=== PATIENT | male | born 1980 | race Caucasian/White ===

== ENCOUNTER 2022-08-12 20:41 | Emergency (ER) | payer OTHER ==
[2022-08-12 21:12] LABS: BASO% 0.4 % (0-3); EOS% 1.5 % (0-8); HEMATOCRIT 36.9 % (39.0-50.0); HEMOGLOBIN 13.2 g/dl (14.0-18.0); IMMATURE GRANULOCYTES 0.1 % (0.0-5.0); LYMPH% 20.2 % (15-41); MEAN CELL VOLUME 88.5 fL CALC (80.0-100.0); MEAN CORPUSCULAR HGB 31.7 pG CALC (26.0-32.0); MEAN CORPUSCULAR HGB CONC 35.8 g/dL CAL (32.0-36.0); MONO% 7.9 % (2-13); NEUT# 4.97 thou/uL (1.82-7.42); NEUT% 69.9 % (42-76); RED BLOOD COUNT 4.17 mill/uL (4.70-6.10); RED CELL DISTRI WIDTH 11.8 % (11.5-15.5)
[2022-08-12 21:23] LABS: ALBUMIN 4.1 g/dL (3.2-5.0); ALKALINE PHOSPHATASE 57 u/l (38-126); ANION GAP 13 (6-22 (CALC)); BILIRUBIN, TOTAL 0.3 mg/dL (0.0-1.4); BUN 15 mg/dL (9-20); BUN/CREATININE RATIO 12 (12-20 (CALC)); CARBON DIOXIDE 23 mmol/l (22-30); CHLORIDE 105 mmol/l (95-108); CREATININE 1.2 mg/dL (0.7-1.3); ETHYL ALCOHOL 0 mg/dl (0-30); GFR FOR AFR.AMER. > 60 ML/MIN (>=60 (CALC)); GFR OTHER RACES > 60 ML/MIN (>=60 (CALC)); POTASSIUM 3.4 mmol/l (3.5-5.1); SGOT/AST 26 u/l (17-59); SODIUM 137 mmol/l (137-146); TOTAL PROTEIN 6.6 g/dL (6.3-8.2)
[2022-08-12 23:24] LABS: URINE BILIRUBIN - DIPSTICK NEGATIVE (NEGATIVE); URINE BLOOD DIPSTICK NEGATIVE (NEGATIVE); URINE COLOR YELLOW; URINE GLUCOSE - DIPSTICK NEGATIVE (NEGATIVE); URINE KETONE NEGATIVE (NEGATIVE); URINE LEUK ESTERASE NEGATIVE (NEGATIVE); URINE PROTEIN - DIPSTICK NEGATIVE (NEG-TRACE); URINE SPECIFIC GRAVITY 1.015; URINE UROBILINOGEN - DIPSTICK 0.2 E.U./dL (0.2)
[2022-08-12 23:25] LABS: URINE NITRITE - DIPSTICK NEGATIVE (Negative)
[2022-08-13 00:12] VITALS: BP 11/62
== END 2022-08-13 01:01 | DRG 918 ==
LOC: ED 20:41
PROVIDERS: Family Medicine
DX: T40.2X1A Poisoning by other opioids, accidental (unintentional), initial encounter (principal); R40.4 Transient alteration of awareness; Y92.143 Cell of prison as the place of occurrence of the external cause

== ENCOUNTER 2024-04-23 21:44 | Emergency (ER) | payer OTHER ==
[2024-04-23] VITALS (9 sets, daily range): BP systolic 87–119; BP diastolic 64–80
[~2024-04-23] VITALS: Ht 180.3 cm; Wt 66.6 kg
[2024-04-23] MEDS ORDERED: ACETAMINOPHEN 325 MG/TAB PO ONE (21:55)
[2024-04-23 22:04] LABS: URINE BILIRUBIN - DIPSTICK Negative (NEGATIVE); URINE BLOOD DIPSTICK Negative (NEGATIVE); URINE GLUCOSE - DIPSTICK Negative (NEGATIVE); URINE KETONE Negative (NEGATIVE); URINE LEUK ESTERASE Negative (NEGATIVE); URINE NITRITE - DIPSTICK Negative (Negative); URINE PROTEIN - DIPSTICK Trace mg/dL (NEG-TRACE); URINE UROBILINOGEN - DIPSTICK 0.2 E.U./dL (0.2)
[2024-04-23 22:04] LABS: BASO% 0.7 % (0-3); EOS% 0.5 % (0-8); HEMATOCRIT 35.8 % (39.0-50.0); HEMOGLOBIN 12.2 g/dl (14.0-18.0); IMMATURE GRANULOCYTES 0.2 % (0.0-5.0); MEAN CELL VOLUME 90.9 fL CALC (80.0-100.0); MEAN CORPUSCULAR HGB CONC 34.1 g/dL CAL (32.0-36.0); MONO% 12.6 % (2-13); NEUT# 7.01 thou/uL (1.82-7.42); RED BLOOD COUNT 3.94 mill/uL (4.70-6.10); RED CELL DISTRI WIDTH 11.6 % (11.5-15.5)
[2024-04-23 22:05] LABS: URINE COLOR Yellow
[2024-04-23 22:16] LABS: ALBUMIN 3.7 g/dL (3.2-5.0); BILIRUBIN, TOTAL 0.4 mg/dL (0.2-1.3); POTASSIUM 4.2 mmol/l (3.5-5.1)
[2024-04-23 22:20] LABS: INTERNATIONAL NORMALIZED RATIO 1.1 RATIO (0.7-1.3)
[2024-04-23 22:21] LABS: PROTHROMBIN TIME 10.1 SECONDS (9.0-12.5)
[2024-04-24] VITALS (7 sets, daily range): BP systolic 90–105; BP diastolic 67–76
[2024-04-24] MEDS ORDERED: KEPPRA500 M2 PO (00:50)
== END 2024-04-24 01:36 | disposition home or self-care (01) | DRG 101 ==
LOC: ED 21:44
PROVIDERS: Family Medicine
DX: R56.9 Unspecified convulsions (principal); S40.212A Abrasion of left shoulder, initial encounter; S00.212A Abrasion of left eyelid and periocular area, initial encounter; S00.211A Abrasion of right eyelid and periocular area, initial encounter; S00.01XA Abrasion of scalp, initial encounter; S00.12XA Contusion of left eyelid and periocular area, initial encounter; S00.11XA Contusion of right eyelid and periocular area, initial encounter; X58.XXXA Exposure to other specified factors, initial encounter; Y92.143 Cell of prison as the place of occurrence of the external cause
CPT/HCPCS: J1953